=== PATIENT | female | born 2000 | race Caucasian/White ===

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

== ENCOUNTER 2018-02-13 13:17 | Emergency (ER) | payer OTHER ==
[2018-02-13 13:39] VITALS: BP 140/78
--- NOTE | 2018-02-13 13:47 | ED ---
Respiratory - HPI Summary HPI Summary: 18-year-old presents with cough for the past week. She admits to intermediate sinus congestion. She denies any sinus pressure. She denies headache. She denies any chest pain she denies any nausea vomiting. She states occasional shortness breath she is nonsmoker. She is not asthmatic. She denies any pain or swelling in calf muscles. Denies any sore throat. - History of Current Complaint Chief Complaint: UCGeneralIllness Stated Complaint: CHEST CONGESTION, AND COUGH Time Seen by Provider: 02/13/18 13:25 Pain Intensity: 0 - Allergy/Home Medications Allergies/Adverse Reactions: Allergies Allergy/AdvReac Type Severity Reaction Status Date / Time No Known Allergies Allergy Verified 02/13/18 13:36 Home Medications: Home Medications guaiFENesin [Mucinex] 1 tab PO BID PRN 02/13/18 [History Confirmed 02/13/18] PMH/Surg Hx/FS Hx/Imm Hx Endocrine/Hematology History: Denies: Hx Diabetes Cardiovascular History: Denies: Hx Hypertension Sensory History: Denies: Hx Contacts or Glasses, Hx Hearing Aid Opthamlomology History: Denies: Hx Contacts or Glasses Psychiatric History: Reports: Hx Anxiety, Hx Depression, Hx of Violent Episodes Against Others - Mother, Hx Substance Abuse Denies: Hx Eating Disorder, Hx Suicide Attempt - Surgical History Surgery Procedure, Year, and Place: Denies Infectious Disease History: No Infectious Disease History: Denies: Traveled Outside the [place] in Last 30 Days - Family History Known Family History: Negative: Hypertension - Social History Alcohol Use: None Hx Substance Use: Yes Substance Use Type: Reports: None Hx Tobacco Use: No Smoking Status (MU): Never Smoked Tobacco Have You Smoked in the Last Year: No Review of Systems Negative: Fever Positive: Nasal Discharge Negative: Chest Pain Positive: Shortness Of Breath, Cough All Other Systems Reviewed And Are Negative: Yes Physical Exam Triage Information Reviewed: Yes Vital Signs On Initial Exam: Initial Vitals Temp Pulse Resp BP Pulse Ox 98.8 F 78 16 140/78 97 02/13/18 13:37 02/13/18 13:37 02/13/18 13:37 02/13/18 13:37 02/13/18 13:37 Vital Signs Reviewed: Yes Appearance: Positive: Well-Appearing Skin: Positive: Warm, Dry Head/Face: Positive: Normal Head/Face Inspection Eyes: Positive: Normal, EOMI, JAZMIN, Conjunctiva Clear ENT: Positive: Normal ENT inspection, Pharynx normal, TMs normal. Negative: Sinus tenderness Neck: Positive: Supple, Nontender, No Lymphadenopathy Respiratory/Lung Sounds: Positive: Clear to Auscultation, Breath Sounds Present , Other - neg egophony Cardiovascular: Positive: Normal, RRR Abdomen Description: Positive: Nontender, Soft Bowel Sounds: Positive: Present Musculoskeletal: Positive: Normal Neurological: Positive: Normal Psychiatric: Positive: Normal Diagnostics - Vital Signs Vital Signs Temp Pulse Resp BP Pulse Ox 02/13/18 13:37 98.8 F 78 16 140/78 97 - Laboratory Lab Statement: Any lab studies that have been ordered have been reviewed, and results considered in the medical decision making process. Disposition - Course Course Of Treatment: 18-year-old presents with cough for the past week. She admits to intermediate sinus congestion. She denies any sinus pressure. She denies headache. She denies any chest pain she denies any nausea vomiting. She states occasional shortness breath she is nonsmoker. She is not asthmatic. She denies any pain or swelling in calf muscles. Denies any sore throat. On exam lungs clear to auscultation. neg egophony. We'll treat as bronchitis with inhaler and steroid. told establish care with primary and follow up with as blood pressure is elevated at this visit. Patient understands agrees with plan. - Differential Dx - Cardiopulmonary Differential Diagnoses - Cardiopulmonary: Bronchitis, Influenza, Lower Resp Infection - Diagnoses Provider Diagnoses: Bronchitis, Elevated blood pressure reading Discharge - Sign-Out/Discharge Documenting (check all that apply): Discharge/Admit/Transfer - Discharge Plan Condition: Good Disposition: HOME Prescriptions: Albuterol HFA INHALER* [Ventolin HFA Inhaler*] 1 puff INH Q4H PRN #1 mdi PRN Reason: Sob/Wheezing predniSONE TAB* [Deltasone TAB*] 50 mg PO DAILY #5 tab Patient Education Materials: Acute Bronchitis (ED) Referrals: [facility] [facility] [Outside] Additional Instructions: Use inhaler one puff every 4 hours for cough as needed Take steroid once a day for 5 days Continue mucinex Use saline in the nose for nasal congestion Use humidifier or place warm bowls of water around the room for cough Cough can last up to 4 weeks Establish care with primary to follow up about blood pressure as is elevated at this visit. Return to ED if develop any new or worsening symptoms - Billing Disposition and Condition Condition: GOOD Disposition: HOME
== END 2018-02-13 14:35 | disposition home or self-care (01) ==
LOC: UCEAST 13:17
DX: J40 Bronchitis, not specified as acute or chronic (principal); R03.0 Elevated blood-pressure reading, without diagnosis of hypertension
CPT/HCPCS: 99212; G0463

== ENCOUNTER 2018-07-16 14:35 | Emergency (ER) | payer OTHER ==
--- NOTE | 2018-07-16 14:57 | UC ---
FLU HPI - HPI Summary HPI Summary: 18 y/o female presents to the urgent care c/o nasal congestion, and productive cough w/ yellowish nasal discharge for the past 5 days. Pt states it started w/ common cold and then cough developed, body aches, fatigue, chills and FAROOQ. She has taking Mucinex PO to alleviate cough. She has Diarrhea for 1 day about 3 days ago which resolved completely. She has hot flashes now, but has not taken her temp. Pt denies sore throat, ear pain, SOB, chest pain, abdominal pain, N/V/ D. pt is UTD w/ all vaccines for her age. - History of Current Complaint Stated Complaint: FLU-LIKE SYMPTOMS Time Seen by Provider: 07/16/18 14:56 Hx Obtained From: Patient Hx Last Menstrual Period: 06/29/2018 ?: No Onset/Duration: Gradual Onset, Lasting Days - 5 days, Still Present, Worse Since - yesterday Severity Currently: Mild Severity Initially: Moderate Pain Intensity: 3 - body aches and FAROOQ Pain Scale Used: 0-10 Numeric Associated Signs & Symptoms: Positive: Cough - productive, Nasal Congestion, Headache, Diarrhea - 1 day resolved now - Risk Factors Influenza Risk Factors: Negative - Allergy/Home Medications Allergies/Adverse Reactions: Allergies Allergy/AdvReac Type Severity Reaction Status Date / Time No Known Allergies Allergy Verified 07/16/18 14:51 Home Medications: Home Medications traZODone TAB* [Desyrel TAB*] 50 mg PO BEDTIME 07/16/18 [History Confirmed 07/16] PMH/Surg Hx/FS Hx/Imm Hx Previously Healthy: Yes Respiratory History: Asthma - Surgical History Surgical History: None Surgery Procedure, Year, and Place: Denies - Family History Known Family History: Positive: None - Pt denies FMHX Negative: Hypertension - Social History Occupation: Student Lives: With Family Alcohol Use: None Substance Use Type: None Smoking Status (MU): Never Smoked Tobacco Have You Smoked in the Last Year: No When Did the Patient Quit Smoking/Using Tobacco: Never Used - Immunization History Most Recent Influenza Vaccination: 2 Years Ago Most Recent Pneumonia Vaccination: Never Vaccination Up to Date: Yes Review of Systems Constitutional: Chills, Fatigue, Other - body aches Skin: Negative Eyes: Negative ENT: Nasal Discharge, Sinus Congestion Respiratory: Cough - productive pain w/ yellowish phlegm Cardiovascular: Negative Gastrointestinal: Negative Genitourinary: Negative Motor: Negative Neurovascular: Negative Musculoskeletal: Negative Neurological: Headache Psychological: Negative Is Patient Immunocompromised?: No All Other Systems Reviewed And Are Negative: Yes Physical Exam - Summary Physical Exam Summary: VITAL SIGNS: Reviewed. GENERAL: Patient is a well developed and nourished female adolescent who is sitting comfortable in the examining table. Patient is not in any acute respiratory distress. HEAD AND FACE: No signs of trauma. No ecchymosis, hematomas or skull depressions. No sinus tenderness. EYES: PERRLA, EOMI x 2, No injected conjunctiva, no nystagmus. No photophobia. EARS: Hearing grossly intact. Ear canals and tympanic membranes are within normal limits. Nose: edematous and erythematous nasal mucosa w/ clear nasal discharge. MOUTH: Positive no erythema, no tonsillar enlargement. Uvula in midline. NECK: Supple, trachea is midline, Positive anterior cervical lymphadenopathy, no JVD, no carotid bruit, no c-spine tenderness, neck with full ROM. No meningeal signs, no Kernig's or brudzinskis signs. CHEST: Symmetric, no tenderness at palpation LUNGS: Clear to auscultation bilaterally. No wheezing or crackles. CVS: Regular rate and rhythm, S1 and S2 present, no murmurs or gallops appreciated. ABDOMEN: Soft, non-tender. No signs of distention. No rebound no guarding, and no masses palpated. Bowel sounds are normal. EXTREMITIES: FROM in all major joints, no edema, no cyanosis or clubbing. NEURO: Alert and oriented x 3. No acute neurological deficits. Speech is normal and follows commands. SKIN: Dry and warm Triage Information Reviewed: Yes Flu Course/Dx - Course Course Of Treatment: 18 y/o female presents to the urgent care c/o nasal congestion, and productive cough w/ yellowish nasal discharge for the past 5 days. Pt states it started w/ common cold and then cough developed, body aches, fatigue, chills and FAROOQ. She has taking Mucinex PO to alleviate cough. She has Diarrhea for 1 day about 3 days ago which resolved completely. She has hot flashes now, but has not taken her temp. Pt denies sore throat, ear pain, SOB, chest pain, abdominal pain, N/V/D. pt is UTD w/ all vaccines for her age. Hx obtained. Pt w/ a viral syndrome on examination. Influenza A&B ordered: result : negative. Pt Rx ibuprofen PO to alleviates symptoms. Advised on hand washing. Pt advised to rest, increase fluid intake, eat well and avoid strenuous exercise. If symptoms do not improve or worsen advised to return to the urgent care or f/u with her PCP for further evaluation and treatment. Pt's BP is elevated today advised to decrease salt in diet, monitor BP and f/u with PCP for further management.Pt understood and agreed with plan of care. - Differential Dx/Diagnosis Differential Diagnosis/HQI/PQRI: Bronchitis, Influenza, Upper Respiratory Infection, Other - viral syndrome Provider Diagnoses: 1- Viral syndrome Discharge - Sign-Out/Discharge Documenting (check all that apply): Patient Departure - D/c home All imaging exams completed and their final reports reviewed: No Studies - Discharge Plan Condition: Stable Disposition: HOME Prescriptions: Ibuprofen TAB* [Motrin TAB* 600 MG] 600 mg PO Q6H PRN #30 tab PRN Reason: Pain Patient Education Materials: Viral Syndrome (ED), Low-Sodium Diet (ED) Forms: *Work Release Referrals: [facility] [place] [facility] [Outside] - 3 Days Additional Instructions: 1-Please take ibuprofen PO q6-8hrs prn as instructed after meals to alleviate pain and swelling. Increase fluid intake, eat well, rest and avoid strenuous exercise 2-If symptoms do not improve or worsen please return to the urgent care or f/u with your PCP for further evaluation and treatment. 3-Your BP is elevated today. please decrease salt in your diet, monitor BP and if it continues to be elevated please f/u with your PCP for further management - Billing Disposition and Condition Condition: STABLE Disposition: Home - Attestation Statements Provider Attestation: Per institutional requirements, I have reviewed the chart, however, I was not consulted specifically or made aware of this patient by the midlevel provider. I did not personally evaluate, interact with , or disposition this patient.
[2018-07-16 14:58] VITALS: BP 131/96
== END 2018-07-16 15:30 | disposition home or self-care (01) ==
LOC: UCEAST 14:35
DX: B34.9 Viral infection, unspecified (principal)
CPT/HCPCS: 99212; G0463

== ENCOUNTER 2018-11-09 16:54 | Emergency (ER) | payer OTHER ==
[2018-11-09 17:22] VITALS: BP 113/73
--- NOTE | 2018-11-10 06:04 | UC ---
Respiratory Complaint HPI - HPI Summary HPI Summary: Patient is a 18-year-old female presenting to the with cough, congestion, rhinorrhea, headache, shortness of breath, feeling of "wheezing", fevers, sweats , chills. Symptoms have been present 4.5 weeks and have been worsening. She endorses sputum production with green phlegm. Fevers are subjective, sweats or worse at night. She is concerned over the SOB. Denies any history of asthma. She denies any known sick contacts. She is otherwise healthy and takes no medications. She has been using NyQuil and DayQuil without relief. - History of Current Complaint Chief Complaint: UCRespiratory Stated Complaint: COUGH Time Seen by Provider: 11/09/18 17:25 Hx Obtained From: Patient Hx Last Menstrual Period: unknown ?: No Onset/Duration: Sudden Onset Timing: Constant Severity Initially: Moderate Severity Currently: Moderate Pain Intensity: 5 Pain Scale Used: 0-10 Numeric Character: Cough: Productive Alleviating Factors: Upright Position Associated Signs And Symptoms: Positive: Dyspnea, Fever, Chills, URI, Nasal Congestion, Sinus Discomfort. Negative: Pleuritic Chest Pain, Calf Pain, Calf Swelling - Risk Factors Pulmonary Embolism Risk Factors: Negative Cardiac Risk Factors: Negative Pseudomonas Risk Factors: Negative Tuberculosis Risk Factors: Negative - Allergies/Home Medications Allergies/Adverse Reactions: Allergies Allergy/AdvReac Type Severity Reaction Status Date / Time No Known Allergies Allergy Verified 11/09/18 17:21 Home Medications: Home Medications hydrOXYzine HCl [Hydroxyzine HCl] 10 mg PO DAILY WITH MEAL 11/09/18 [History Confirmed 11/09/18] lamoTRIgine [Lamotrigine ER] 50 mg PO DAILY WITH MEAL 11/09/18 [History Confirmed 11/09/18] PMH/Surg Hx/FS Hx/Imm Hx Previously Healthy: Yes - Surgical History Surgical History: None Surgery Procedure, Year, and Place: Denies - Family History Known Family History: Positive: None - Pt denies FMHX Negative: Hypertension - Social History Occupation: Employed Part-time Lives: With Family Alcohol Use: Rare Substance Use Type: None Smoking Status (MU): Light Every Day Tobacco Smoker Length of Time of Smoking/Using Tobacco: 1/2 ppd Have You Smoked in the Last Year: No When Did the Patient Quit Smoking/Using Tobacco: Never Used - Immunization History Most Recent Influenza Vaccination: 2 Years Ago Most Recent Pneumonia Vaccination: Never Vaccination Up to Date: Yes Review of Systems All Other Systems Reviewed And Are Negative: Yes Constitutional: Positive: Fever, Chills, Fatigue Skin: Positive: Negative ENT: Positive: Sore Throat, Nasal Discharge, Sinus Congestion, Sinus Pain/ Tenderness Respiratory: Positive: Shortness Of Breath, Cough Motor: Positive: Negative Musculoskeletal: Positive: Negative Neurological: Positive: Negative Is Patient Immunocompromised?: Yes Physical Exam Triage Information Reviewed: Yes Appearance: Well-Appearing, Well-Nourished Vital Signs: Initial Vital Signs Temp 98.1 F 11/09/18 17:16 Pulse 40 11/09/18 17:16 Resp 18 11/09/18 17:16 BP 113/73 11/09/18 17:16 Pulse Ox 100 11/09/18 17:16 Vital Signs Reviewed: Yes Eye Exam: Normal ENT: Positive: Pharynx normal, Nasal congestion, Nasal drainage, Sinus tenderness. Negative: Tonsillar swelling, Tonsillar exudate Neck exam: Normal Neck: Positive: Supple Respiratory Exam: Normal Respiratory: Positive: Chest non-tender Musculoskeletal Exam: Normal Musculoskeletal: Positive: Strength Intact Neurological: Positive: Alert Psychological: Positive: Normal Response To Family Skin Exam: Normal UC Diagnostic Evaluation - Laboratory O2 Sat by Pulse Oximetry: 100 Respiratory Course/Dx - Course Course Of Treatment: Patient is evaluated for rhinorrhea, cough, chest congestion, SOB, fevers, sweats, chills. On physical examination, lungs are wheezy bilaterally. No rhonchorous sounds throughout. Patient has a heavy cough with green sputum production. Patient is diaphoretic. Vital signs are stable however. She is given Tessalon, azithromycin, prednisone and an albuterol inhaler due to her wheezing and SOB. She is to follow-up in 2-3 days to assure improvement of her symptoms. - Differential Dx/Diagnosis Differential Diagnosis/HQI/PQRI: Asthma, Bronchitis, Lower Resp Infection, Sinusitis Provider Diagnosis: Bronchitis Discharge - Sign-Out/Discharge Documenting (check all that apply): Patient Departure All imaging exams completed and their final reports reviewed: No Studies - Discharge Plan Condition: Stable Disposition: HOME Prescriptions: Albuterol HFA INHALER* [Ventolin HFA Inhaler*] 1 puff INH Q4H PRN #1 mdi PRN Reason: Shortness Of Breath Azithromycin TAB* [Zithromax TAB (Z-SHANDRA) 250 mg #6 tabs] 2 tab PO .TODAY, THEN 1 DAILY #1 shandra Benzonatate CAP* [Tessalon CAP*] 100 mg PO TID #21 cap predniSONE TAB* [Deltasone TAB*] 50 mg PO DAILY #5 tab MDD 1 Patient Education Materials: Acute Bronchitis (ED) Referrals: No Primary Care Phys,NOPCP [Primary Care Provider] - Additional Instructions: Drink plenty of fluids Over the counter robitussin, emergent-C and zinc Humidifier in the home Albuterol inhaler as needed for shortness of breath Prednisone once daily in the morning - start this tomorrow Azithromycyin - 2 tabs today and 1 tab daily x 4 days Tessalon up to three times daily for cough Rest Follow up with PCP - Billing Disposition and Condition Condition: STABLE Disposition: Home - Attestation Statements Provider Attestation: I was available for consult. This patient was seen by the KENIA. The patient was not presented to, seen by, or examined by me. -Pasha
== END 2018-11-09 17:43 | disposition home or self-care (01) ==
LOC: UCEAST 16:54
DX: J40 Bronchitis, not specified as acute or chronic (principal); F17.210 Nicotine dependence, cigarettes, uncomplicated
CPT/HCPCS: 99212; G0463

== ENCOUNTER 2018-11-16 11:56 | Emergency (ER) | payer OTHER ==
[2018-11-16 12:02] VITALS: BP 148/92
== END 2018-11-16 12:34 | disposition left against medical advice (07) ==
LOC: CANPREER → ED 11:56
DX: Z02.9 Encounter for administrative examinations, unspecified (principal); Z53.21 Procedure and treatment not carried out due to patient leaving prior to being seen by health care provider
CPT/HCPCS: 99281

== ENCOUNTER 2019-01-08 12:18 | Emergency (ER) | payer OTHER ==
[2019-01-08 12:29] VITALS: BP 112/71
--- NOTE | 2019-01-08 12:37 | ED ---
Throat Pain/Nasal Congestion - HPI Summary HPI Summary: 18 year old female presents with intermittent ear pressure in right ear for the past 4 days. She states she has occasional pain. She sometimes has a headache on that side. She states that symptoms worsen when she is exposed to wind or a fan. her ears have not been popping. She states that states she has been having some sinus congestion. No fevers. No sore throat. No cough. Has no medical conditions. Does have a history of ear infections. Hasn't tried anything for her symptoms. - History of Current Complaint Chief Complaint: UCEar Time Seen by Provider: 01/08/19 12:27 - Allergies/Home Medications Allergies/Adverse Reactions: Allergies Allergy/AdvReac Type Severity Reaction Status Date / Time No Known Allergies Allergy Verified 01/08/19 12:29 PMH/Surg Hx/FS Hx/Imm Hx Endocrine/Hematology History: Denies: Hx Diabetes, Hx Thyroid Disease Cardiovascular History: Denies: Hx Hypertension Respiratory History: Denies: Hx Asthma, Hx Chronic Obstructive Pulmonary Disease (COPD) GI History: Denies: Hx Ulcer Sensory History: Denies: Hx Contacts or Glasses, Hx Hearing Aid Opthamlomology History: Denies: Hx Contacts or Glasses Psychiatric History: Reports: Hx Anxiety, Hx Depression, Hx of Violent Episodes Against Others - Mother, Hx Substance Abuse Denies: Hx Eating Disorder, Hx Suicide Attempt - Surgical History Surgery Procedure, Year, and Place: Denies Infectious Disease History: No Infectious Disease History: Denies: Hx Hepatitis, Hx Human Immunodeficiency Virus (HIV), Traveled Outside the [place] in Last 30 Days - Family History Known Family History: Positive: None - Pt denies FMHX Negative: Hypertension - Social History Alcohol Use: Rare Hx Substance Use: Yes Substance Use Type: Reports: None Hx Tobacco Use: No Smoking Status (MU): Light Every Day Tobacco Smoker Length of Time of Smoking/Using Tobacco: 1/2 ppd Have You Smoked in the Last Year: No Review of Systems Negative: Fever Positive: Ear Ache Negative: Chest Pain Negative: Shortness Of Breath All Other Systems Reviewed And Are Negative: Yes Physical Exam Triage Information Reviewed: Yes Vital Signs On Initial Exam: Initial Vitals Temp Pulse Resp BP Pulse Ox 97.7 F 86 14 112/71 100 01/08/19 12:24 01/08/19 12:24 01/08/19 12:24 01/08/19 12:24 01/08/19 12:24 Vital Signs Reviewed: Yes Appearance: Positive: Well-Appearing Skin: Positive: Warm, Dry Head/Face: Positive: Normal Head/Face Inspection Eyes: Positive: Normal, EOMI, JAZMIN, Conjunctiva Clear ENT: Positive: Pharynx normal, TMs normal - fluid behind bilateral ears. Negative: TM bulging, TM red Respiratory/Lung Sounds: Positive: Clear to Auscultation, Breath Sounds Present Cardiovascular: Positive: Normal, RRR Musculoskeletal: Positive: Normal Neurological: Positive: Normal Psychiatric: Positive: Normal Diagnostics - Vital Signs Vital Signs Temp Pulse Resp BP Pulse Ox 01/08/19 12:24 97.7 F 86 14 112/71 100 - Laboratory Lab Statement: Any lab studies that have been ordered have been reviewed, and results considered in the medical decision making process. EENT Course/Dx - Course Course Of Treatment: 18 year old female presents with intermittent ear pressure in right ear for the past 4 days. She states she has occasional pain. She sometimes has a headache on that side. She states that symptoms worsen when she is exposed to wind or a fan. her ears have not been popping. She states that states she has been having some sinus congestion. No fevers. No sore throat. No cough. Has no medical conditions. Does have a history of ear infections. Hasn't tried anything for her symptoms. On exam TMs no erythema noted. she has fluid behind bilateral TMs. ear is not infected at the moment. Discussed will placed on Flonase and continue Sudafed to decrease amount of fluid behind the ear. Patient understands agrees plan. - Differential Diagnoses Differential Diagnoses: Otitis Externa, Otitis Media, URI/Bronchitis - Diagnoses Provider Diagnoses: Eustachian tube dysfunction Discharge - Sign-Out/Discharge Documenting (check all that apply): Patient Departure All imaging exams completed and their final reports reviewed: No Studies - Discharge Plan Condition: Good Disposition: HOME Prescriptions: Fluticasone NASAL SPRAY 50MCG* [Flonase NASAL SPRAY 50MCG*] 2 spray BOTH NARES DAILY #1 btl Referrals: Ovidio Aldridge DO [Primary Care Provider] - Additional Instructions: Chew gum or suck on hard candies Can use sudafed daily use flonase two puff each nostril use nasal saline in nose take tyenlol or ibuprofen as needed for pain every 6 hours Return to UC if develop worsening ear pain, fever or any new or worsening symptoms - Billing Disposition and Condition Condition: GOOD Disposition: Home
== END 2019-01-08 12:40 | disposition home or self-care (01) ==
LOC: UCEAST 12:18
DX: H69.91 Unspecified Eustachian tube disorder, right ear (principal); R51 Headache; F17.210 Nicotine dependence, cigarettes, uncomplicated
CPT/HCPCS: 99212; G0463

== ENCOUNTER 2023-08-04 06:28 | Inpatient (IN) ==
[2023-08-04] MEDS ORDERED: Lidocaine 1% VIAL 10 MG/ML 30 ML VIAL INJ PRN (07:58)
[2023-08-04] MEDS ORDERED: Lactated Ringers 1000 ml BAG 1,000 ML IV ONE ×2 (07:58→14:48)
[2023-08-04 09:32] LABS: Urine Benzodiazepine Screen None Detected (None Detect); Urine Cannabinoids Screen Presumptive Positive (None Detect); Urine Opiates Screen None Detected (None Detect)
[2023-08-04 11:26] LABS: ABS Basophils 0.1 10^3/uL (0.0-0.1); ABS Eosinophils 0.1 10^3/uL (0.0-0.5); ABS Lymphocytes 2.5 10^3/uL (1.0-4.8); ABS Monocytes 0.9 10^3/uL (0.0-0.9); Eosinophil % 0.4 %; Hematocrit 31.9 % (35-45); Hemoglobin 10.7 g/dL (11.5-14.3); Lymphocyte % 15.2 %; Mean Corpuscular Hemoglobin 27.7 pg (27-33); Mean Corpuscular Hgb Conc 33.5 g/dL (31-36); Mean Corpuscular Volume 82.7 fL (80-97); Mean Platelet Volume 9.4 fL (7.5-11.2); Platelet Count 327 10^3/uL (150-450); Red Blood Count 3.86 10^6/uL (3.63-4.92); Red Cell Distribution Width 14.2 % (12-17); White Blood Count 16.6 10^3/uL (3.8-11.8)
[2023-08-04] MEDS ORDERED: Sodium Citrate/Citric Acid LIQ 15 ML UDC PO PRN (14:48)
[2023-08-04] MEDS ORDERED: Phenylephrine 40 mcg/mL 10mL (400mcg) SYRINGE IV PUSH PRN ×2 (14:48)
[2023-08-04] MEDS ORDERED: Lactated Ringers 1000 ml BAG 1,000 ML IV SCH ×2 (15:00→20:00)
[2023-08-04] MEDS ORDERED: OBEPIDURAL (200 ML) 200 ML EPIDURAL SCH (15:00)
[2023-08-04 17:02] LABS: Urine Appearance Clear; Urine Bilirubin Negative (Negative); Urine Blood Negative (Negative); Urine Color Colorless; Urine Glucose Negative (Negative); Urine Ketones Negative (Negative); Urine Nitrite Negative (Negative); Urine Protein Negative (Negative); Urine Specific Gravity 1.003 (1.002-1.030); Urine Urobilinogen Negative (Negative)
[2023-08-04] MEDS ORDERED: Oxytocin in LR 20,000 MILLI.UNIT/1,000 ML BAG IV SCH (17:10)
[2023-08-04] MEDS ORDERED: Oxytocin 10 UNITS/ML 1 ML VIAL IM PRN (19:20)
[2023-08-04] MEDS ORDERED: Dibucaine 1% OINT 28.35 GM TUBE PR PRN (19:20)
[2023-08-04] MEDS ORDERED: RHO D Immune Globulin (HUMAN) 300 MCG = 1,500 I.U. INJ IM PRN (19:20)
[2023-08-04] MEDS ORDERED: Witch Hazel PAD JAR TOPICAL PRN (19:20)
[2023-08-05 07:03] LABS: ABS Basophils 0.1 10^3/uL (0.0-0.1); ABS Eosinophils 0.1 10^3/uL (0.0-0.5); ABS Monocytes 0.8 10^3/uL (0.0-0.9); ABS Neutrophils 9.2 10^3/uL (1.5-7.6); Eosinophil % 0.9 %; Hematocrit 27.3 % (35-45); Hemoglobin 9.3 g/dL (11.5-14.3); Lymphocyte % 22.8 %; Mean Corpuscular Hemoglobin 28.4 pg (27-33); Mean Corpuscular Hgb Conc 34.3 g/dL (31-36); Mean Corpuscular Volume 82.9 fL (80-97); Mean Platelet Volume 9.1 fL (7.5-11.2); Platelet Count 243 10^3/uL (150-450); Red Blood Count 3.29 10^6/uL (3.63-4.92); Red Cell Distribution Width 14.5 % (12-17); White Blood Count 13.1 10^3/uL (3.8-11.8)
[2023-08-05] MEDS ORDERED: Influenza vaccine *QUAD* *2023-24* 0.5 ML SYRINGE IM ONE (09:00)
[2023-08-06 08:48] VITALS: BP 125/76
[2023-08-06] MEDS ORDERED: Varicella Virus Vaccine Live 0.5 ML VIAL SUBCUT ONE (09:00)
[2023-08-06] MEDS ORDERED: Influenza vaccine *QUAD* *2023-24* 0.5 ML SYRINGE IM ONE (09:00)
== END 2023-08-06 14:30 | disposition home or self-care (01) | DRG 560 ==
LOC: MCHOBOUT 06:28 → MCHOB 07:54
PROVIDERS: ADMIT Midwife; ATTEND Midwife